=== PATIENT | female | born 1970 ===

== ENCOUNTER 2017-03-12 11:16 | Emergency (ER) | payer OTHER ==
[2017-03-12 11:35] VITALS: O2SAT 100
[2017-03-12 11:50] LABS: HCG,QUALITATIVE URINE NEGATIVE
[2017-03-12 11:58] LABS: SQUAMOUS EPITHIAL 1 /hpf (0-5); URINE AMORPHOUS SEDIMENT FEW /ul (<OCC); URINE BILIRUBIN NEGATIVE (NEGATIVE); URINE BLOOD 2+ (NEGATIVE); URINE CLARITY Hazy (Clear); URINE COLOR Yellow (YELLOW); URINE GLUCOSE (UA) NORMAL (Normal); URINE LEUKOCYTE ESTERASE NEG Leu/uL (Negative); URINE NITRATE NEGATIVE (NEGATIVE); URINE PROTEIN NEGATIVE (NEGATIVE); URINE UROBILINOGEN NORMAL mg/dL (0.2-1.0)
[2017-03-12] MEDS ORDERED: Sodium Chloride 0.9% 1,000 ML IV ONE (12:27)
[2017-03-12] MEDS ORDERED: Sodium Chloride 0.9% 1,000 ML ONE (12:36)
[2017-03-12 12:45] LABS: BASO # 0.1 K/uL (0.0-0.2); BASO % 0.6 % (0.0-2.0); EOS % 0.4 % (0.0-4.0); HEMOGLOBIN 13.3 g/dL (11.0-16.0); LYMPH # 1.7 K/uL (1.0-4.3); LYMPH % 16.6 % (20.0-40.0); MEAN CELL VOLUME 90.4 fL (81.0-99.0); MEAN CORPUSCULAR HEMOGLOBIN 30.6 pg (27.0-31.0); MEAN CORPUSCULAR HGB CONC 33.8 g/dL (33.0-37.0); MEAN PLATELET VOLUME 8.7 fL (7.2-11.7); MONO # 0.8 K/uL (0.0-0.8); MONO % 8.1 % (0.0-10.0); NEUT # 7.6 K/uL (1.8-7.0); NEUT % 74.3 % (50.0-75.0); RBC 4.35 Mil/uL (3.80-5.20); WHITE BLOOD COUNT 10.3 K/uL (4.8-10.8)
[2017-03-12 12:57] LABS: ALBUMIN 4.2 g/dL (3.5-5.0)
[2017-03-12 13:01] LABS: ALB/GLOB RATIO 1.3 (1.0-2.1); ALT/SGPT 38 U/L (9-52); AST/SGOT 29 U/L (14-36); BLOOD UREA NITROGEN 8 mg/dL (7-17); GFR AFRICAN-AMERICAN > 60; GFR NON-AFRICAN AMERICAN > 60; LIPASE 80 U/L (23-300)
--- NOTE | 2017-03-12 13:35 | C.PDOC ---
History Of Present Illness 46 yo female w/PMHx of HTN come in for evaluation of epigastric pain since this AM associated with nausea and 2 episodes of vomiting. Pt reports, pain is sharp , localized over epigastric area, non-radiating. Otherwise, pt denies fever, chills, CP, SOB, dyspnea, diaphoresis, palpitation, cough, hematemesis, back pain, melena, hematoschezia, UTI sx. Ambulate to Ed for evaluation, not in any apparent distress. Pt admits, at present time, pain is moderate improved. Time Seen by Provider: 03/12/17 11:39 Chief Complaint (Nursing): Medical Clearance History Per: Patient Onset/Duration Of Symptoms: Gradual Past Medical History Reviewed: Historical Data, Nursing Documentation, Vital Signs Vital Signs: Last Vital Signs Temp 97.6 F 03/12/17 11:30 Pulse 79 03/12/17 11:30 Resp 20 03/12/17 11:30 BP 126/84 03/12/17 11:30 Pulse Ox 100 03/12/17 13:38 - Medical History PMH: HTN Surgical History: No Surg Hx Family History: States: No Known Family Hx - Social History Hx Alcohol Use: No Hx Substance Use: No - Immunization History Hx Tetanus Toxoid Vaccination: No Hx Influenza Vaccination: No Hx Pneumococcal Vaccination: No Review Of Systems Except As Marked, All Systems Reviewed And Found Negative. Constitutional: Negative for: Fever, Chills ENT: Negative for: Throat Pain Cardiovascular: Negative for: Chest Pain, Palpitations, Orthopnea, Paroxysmal Noc. Dyspnea, Edema, Light Headedness Respiratory: Negative for: Cough, Shortness of Breath, Wheezing Gastrointestinal: Positive for: Nausea, Vomiting, Abdominal Pain. Negative for : Diarrhea, Melena, Hematochezia, Hematemesis Genitourinary: Negative for: Dysuria, Frequency Musculoskeletal: Negative for: Neck Pain, Back Pain Skin: Negative for: Rash Neurological: Negative for: Weakness, Numbness, Altered Mental Status, Headache Physical Exam - Physical Exam Appears: Well, Non-toxic, No Acute Distress Skin: Normal Color, Warm, No Rash Throat: No Erythema Neck: Supple Chest: Symmetrical Cardiovascular: Rhythm Regular Respiratory: No Decreased Breath Sounds, No Accessory Muscle Use, No Stridor, No Wheezing Gastrointestinal/Abdominal: Soft, Tenderness (mild epigastric, RUQ pain), No Distention, No Guarding Back: No CVA Tenderness Extremity: Normal ROM, No Pedal Edema Neurological/Psych: Oriented x3, Normal Speech ED Course And Treatment - Laboratory Results Result Diagrams: 03/12/17 12:38 03/12/17 12:38 Lab Interpretation: No Acute Changes ECG: Interpreted By Me, Viewed By Me (and ED attending) ECG Interpretation: Normal Interpretation Of ECG: SR@81/min, NAD, no acute T wave or ST-T changes. O2 Sat by Pulse Oximetry: 100 (RA) Pulse Ox Interpretation: Normal - CT Scan/US US - Abdomen Other Rad Studies (CT/US): Read By Radiologist, Radiology Report Reviewed CT/US Interpretation: HISTORY: RUQ pain. COMPARISON: None. TECHNIQUE: Sonographic evaluation of the right upper quadrant of the abdomen. FINDINGS: LIVER: Measures 16.5 cm in length. Diffusely increased echogenicity of the liver parenchyma. Consistent with fatty infiltration. No mass. No biliary dilatation. Smooth contour. GALLBLADDER: Unremarkable. No gallstones. COMMON BILE DUCT: Measures 3 mm. No stones. No dilatation. PANCREAS: Unremarkable as visualized. No mass. No ductal dilatation. RIGHT KIDNEY: Measures 12.5 cm in length. Normal echogenicity. No calculus, mass, or hydronephrosis. AORTA: No aneurysmal dilatation. IVC: Unremarkable. OTHER FINDINGS: None . IMPRESSION: Fatty infiltration of the liver. No evidence of cholelithiasis or cholecystitis. Progress Note: On re-evaluation, pt is afebrile, hemodynamicaly stable. Reports , moderate improvement in pain after ED treatment. ENT: no acute findings. neck: Supple, (-) JVD, (-) carotid bruits. Lungs: CTA B/L, SB equal B/L. CVS: (+)S1S2, reg. Abd: benign, (-) guarding, (-) rebound, (-) localized tenderness. back: (-) CVA tenderness. Diagnostics and imaging review and appears without acute abnoramlities. NO evidence of acute cholecystitis. Pt has clinical findings c/w epigastric pain. Pt advised and ref. to f/u with PMD , GI in 2-3 days for re-eavl. return to ED if any worsening or new changes. Reevaluation Time: 13:38 Reassessment Condition: Improved Disposition Counseled Patient/Family Regarding: Diagnosis, Need For Followup, Rx Given - Disposition Referrals: Eliu Cornejo MD [Medical Doctor] - Disposition: HOME/ ROUTINE Disposition Time: 13:40 Condition: STABLE Additional Instructions: Encourage fluids Diet restriction for 1 week take medication as need Follow up with PMD, GI in 2-3 days for re-evaluation. Return to Ed if any worsening or new changes. Prescriptions: Pantoprazole Sodium [Protonix] 40 mg PO DAILY #10 tablet.dr Instructions: Epigastric Pain (ED) - Clinical Impression Clinical Impression: Epigastric pain
[2017-03-12 14:31] VITALS: BP 128/70; PULSE 80; RESP 16; TEMP 98.2
--- NOTE | 2017-03-15 12:30 | CARD ---
APPROVED REPORT EKG Measurement Heart [id number] FL [id number] [id number] <Conclusion> Normal sinus rhythm Prolonged QT Abnormal ECG
== END 2017-03-12 14:26 | disposition home or self-care (01) ==
LOC: C.ER 11:16
DX: R10.13 Epigastric pain (principal)
CPT/HCPCS: 76705; 80053; 81001; 83690; 84703; 85025; 93005; 96361; 96374; 96375; 99284; C9113; J2405; J7040